=== PATIENT | female | born 2000 | race Caucasian/White ===

== ENCOUNTER 2025-08-09 22:32 | Day surgery (SDC) | payer OTHER ==
[2025-08-09 22:59] VITALS: BMI 25.2
== END 2025-08-10 00:22 | disposition home or self-care (01) ==
LOC: CSHLD/OP 22:32
PROVIDERS: ATTEND Obstetrics & Gynecology
DX: O47.1 False labor at or after 37 completed weeks of gestation (principal); Z3A.37 37 weeks gestation of pregnancy
CPT/HCPCS: 99283

== ENCOUNTER 2025-08-17 02:16 | Inpatient (IN) | payer OTHER ==
[2025-08-17 02:50] VITALS: BMI 25.2
[2025-08-17] MEDS ORDERED: Diphenoxylate HCl/Atropine Tablet PO PRN ×2 (02:51)
[2025-08-17] MEDS ORDERED: Lidocaine 1% (PF) 30 ML VIAL SC PRN (02:51)
[2025-08-17] MEDS ORDERED: Carboprost 250 MCG/ML AMP IM PRN (02:51)
[2025-08-17] MEDS ORDERED: Ondansetron PF 4 MG/2 ML Vial IVP PRN (02:51)
[2025-08-17] MEDS ORDERED: Methylergonovine 0.2 MG/ML VIAL IM PRN (02:51)
[2025-08-17] MEDS ORDERED: HYDROcodone/Acetaminophen 5/325 mg Tablet PO PRN (02:51)
[2025-08-17] MEDS ORDERED: Tranexamic Acid 1,000 MG/10 ML VIAL IVP PRN (02:51)
[2025-08-17] MEDS ORDERED: hydrALAZINE 20 MG/ML VIAL SLOW IVP PRN ×2 (02:51)
[2025-08-17] MEDS ORDERED: Oxytocin 30 units/NS 500 ML 500 ML IV SCH ×2 (03:00)
[2025-08-17 03:43] LABS: Hematocrit 31.2 % (34.9-44.5); Hemoglobin 10.4 g/dL (12.0-15.5); Mean Corpuscular Hemoglobin 27.7 pg (27.0-33.0); Mean Corpuscular Volume 83.2 fL (81.6-98.3); Platelet Count 358 10x3/uL (150-450); Red Blood Cell (RBC) Count 3.75 10x6/uL (3.90-5.03); White Blood Cell (WBC) Count 10.70 10x3/uL (3.5-10.5)
[2025-08-17 04:20] LABS: Syphilis Antibody Index 0.02 S/CO (<1.00 Non-Reactive)
[2025-08-17 04:21] LABS: Hep B Surf Ag - L&D Non-Reactive S/CO (NonReactive)
[2025-08-17] MEDS: Calcium Carbonate 500 MG ChewTAB PO SCH (04:58)
[2025-08-17] MEDS ORDERED: Oxytocin 10 UNITS/ML VIAL ONE (08:17)
[2025-08-18] MEDS ORDERED: Milk Of Magnesia 30 ML UDCUP PO PRN (05:09)
[2025-08-18] MEDS ORDERED: hydrALAZINE 20 MG/ML VIAL SLOW IVP PRN (05:09)
[2025-08-18] MEDS ORDERED: Benzocaine-Menthol 82.5 ML CAN TOP PRN (05:09)
[2025-08-18] MEDS ORDERED: Boostrix 0.5 ML (Tdap) VIAL (>/=7 yrs of age) IM ONE (05:09)
[2025-08-18] MEDS ORDERED: Bisacodyl 10 MG SUPP PR PRN (05:09)
[2025-08-18] MEDS ORDERED: Preparation H Ointment 28 GM TUBE PR PRN (05:09)
[2025-08-18] MEDS: Oxytocin 30 units/NS 500 ML 500 ML IV SCH (05:12)
[2025-08-18] MEDS: Ibuprofen 800 MG TAB PO PRN (06:08)
[2025-08-18] MEDS: Ibuprofen 800 MG TAB PO SCH (08:38)
[2025-08-18] MEDS: Ferrous Sulfate 325 MG TAB PO SCH (09:13)
[2025-08-19 04:08] LABS: Hematocrit 29.4 % (34.9-44.5); Hemoglobin 9.9 g/dL (12.0-15.5)
[2025-08-19 07:30] VITALS: BP 100/53; TEMP 97.9
== END 2025-08-19 13:20 | disposition home or self-care (01) | DRG 807 ==
LOC: CSHLD/OP 02:16 → CSHLD 02:55 → OBSVTOIN 09:31 → CSHLD 13:04 → CSHPP 08-18 07:56
PROVIDERS: ADMIT Obstetrics & Gynecology; ATTEND Obstetrics & Gynecology
PROC: 10E0XZZ Delivery of Products of Conception, External Approach (ICD-10-PCS; principal; 2025-08-18)
PROC: 10907ZC Drainage of Amniotic Fluid, Therapeutic from Products of Conception, Via Natural or Artificial Opening (ICD-10-PCS; 2025-08-18)
DX: O80 Encounter for full-term uncomplicated delivery (principal); Z37.0 Single live birth; Z3A.38 38 weeks gestation of pregnancy
CPT/HCPCS: 36415; 85014; 85018; 85027; 86780; 86850; 86900; 86901; 87340; 99285; J2590